=== PATIENT | male | born 1980 | race Two or more races ===

== ENCOUNTER 2025-05-09 11:43 | Inpatient (IN) | payer OTHER ==
[~2025-05-09] VITALS: Ht 188 cm; Wt 113.4 kg
[2025-05-09] MEDS ORDERED: PIPERACILLIN/TAZOBACTAM SODIUM 3.375 GM VIAL IV ONE (12:45)
[2025-05-09 13:18] LABS: BASO % 0.7 % (0.1-1.2); EOS # 0.07 (0.04-0.54); EOS % 0.9 % (0.7-7.0); LYMPH # 1.85 (1.18-3.74); LYMPH % 25.0 % (19.3-53.1); MEAN PLATELET VOLUME 9.60 fl (9.4-12.4); MONO # 0.42 (0.24-0.82); MONO % 5.7 % (4.7-12.5); NEUT # 4.99 (1.56-6.13); NEUT % 67.4 % (34.0-71.1); RED CELL DISTRIBUTION WIDTH 13.5 % (11.6-14.4)
[2025-05-09 13:28] LABS: ERYTHROCYTE SEDIMENTATION RATE 73 mm/hr (0-15)
[2025-05-09 13:50] LABS: INR 1.0
[2025-05-09 14:01] LABS: URINE APPEARANCE Clear; URINE BILIRRUBIN Negative (NEGATIVE); URINE BLOOD Negative; URINE COLOR Yellow; URINE KETONE Negative (NEGATIVE); URINE LEUKOCYTE Negative; URINE NITRATE Negative; URINE UROBILINOGEN 0.2 E.U./dl
[2025-05-09 14:04] LABS: URINE BACTERIA 9.6 uL (0.0-1933)
[2025-05-09 14:14] LABS: URINE CAST 0.58 uL (0.0-1.40); URINE EPITHELIAL CELLS 0.7 uL (0.0-38.8); URINE GLUCOSE >=1000 MG/DL (NEGATIVE); URINE PROTEIN 100 (NEGATIVE); URINE RBC 1.3 uL (0.0-20.8); URINE WBC 1.2 uL (0.0-23.2)
[2025-05-09 15:16] LABS: ALT/SGPT 35.0 U/L (12-78); AST/SGOT 18.0 U/L (15-37); BILIRUBIN TOTAL 0.28 mg/dL (0.3-1.2); BUN CREA RATIO 21.0 (7.0-25.0); CREATININE SERUM 1.45 mg/dL (0.70-1.30); GFR 52.87; GLOBULINA 4.5 G/DL (2.4-3.5)
[2025-05-09 15:22] LABS: GLUCOSE FASTING 306.0 mg/dL (65-100); OSMOLALITY SERUM 290.0 MOSM/KG (275-295)
[2025-05-09] MEDS ORDERED: FAMOTIDINE/PF 20 MG/2 ML VIAL IV SCH (15:45)
[2025-05-09] MEDS ORDERED: INSULIN LISPRO 1,000 UNIT/10 ML UNITS SUBCUTANEO PRN (15:45)
[2025-05-09] MEDS ORDERED: DEXTROSE 50 % IN WATER 0.5 G/ML DISP.SYRIN IV PRN (15:45)
[2025-05-09] MEDS ORDERED: VANCOMYCIN HCL 1,000 MG VIAL IV SCH (15:45)
[2025-05-09] MEDS ORDERED: 0.9 % SODIUM CHLORIDE 1,000 ML IV SCH (15:45)
[2025-05-09] MEDS ORDERED: XIGDUO XR 5 MG1 EAC1 PO (15:55)
[2025-05-09] MEDS ORDERED: MOUNJARO10 MG/0.5 SUBCUTANEO (15:57)
[2025-05-09] MEDS ORDERED: COZAAR100 MG PO (15:57)
[2025-05-09] MEDS ORDERED: CHLORTHALIDONE25 MG PO (15:58)
[2025-05-09] MEDS ORDERED: CRESTOR40 MG PO (15:59)
[2025-05-09] MEDS ORDERED: ACETAMINOPHEN 500 MG GEL..CAP PO PRN (16:00)
[2025-05-09] MEDS ORDERED: ROSUVASTATIN CALCIUM 20 MG TABLET PO SCH (17:00)
[2025-05-09] MEDS ORDERED: LACTOBACILLUS ACIDOPHILUS 1 CAP CAP PO SCH (17:00)
[2025-05-09 17:37] VITALS: BP 148/74
[2025-05-09 18:07] LABS: BUN CREA RATIO 22.0 (7.0-25.0); CREATININE SERUM 1.31 mg/dL (0.70-1.30); GFR 59.44; GLUCOSE FASTING 149.0 mg/dL (65-100); OSMOLALITY SERUM 284.0 MOSM/KG (275-295)
[2025-05-09 18:16] LABS: COVID-19 AG NEGATIVE (NEGATIVE)
[2025-05-09 19:14] VITALS: BP 157/83; O2SAT 100
[2025-05-09] MEDS ORDERED: CEFEPIME HCL 2,000 MG in 0.9 % SODIUM CHLORIDE 100 ML IV SCH (21:00)
[2025-05-10 00:48] VITALS: BP 98/60; O2SAT 98
[2025-05-10 06:50] LABS: BASO % 0.8 % (0.1-1.2); EOS # 0.21 (0.04-0.54); EOS % 2.8 % (0.7-7.0); LYMPH # 2.43 (1.18-3.74); LYMPH % 32.3 % (19.3-53.1); MEAN PLATELET VOLUME 9.60 fl (9.4-12.4); MONO # 0.59 (0.24-0.82); MONO % 7.8 % (4.7-12.5); NEUT # 4.22 (1.56-6.13); NEUT % 56.0 % (34.0-71.1); RED CELL DISTRIBUTION WIDTH 13.9 % (11.6-14.4)
[2025-05-10 08:33] LABS: BUN CREA RATIO 22.0 (7.0-25.0); CREATININE SERUM 1.42 mg/dL (0.70-1.30); GFR 54.16; GLUCOSE FASTING 128.0 mg/dL (65-100); OSMOLALITY SERUM 289.0 MOSM/KG (275-295)
[2025-05-10 08:34] LABS: ALT/SGPT 28.0 U/L (12-78); AST/SGOT 13.0 U/L (15-37); BILIRUBIN TOTAL 0.29 mg/dL (0.3-1.2); CHOL HDL RATIO 2.8 (0-5.0); GLOBULINA 3.9 G/DL (2.4-3.5); HDL 30.0 mg/dl (40-60); LDL 10.0 mg/dl (0-130); VLDL 44.0 (0-39)
[2025-05-10 08:35] LABS: PROSTATIC SPECIFIC ANTIGEN 0.884 NG/ML (0.010-4.00); T4 FREE 1.05 NG/ML (0.76-1.46); TSH 2.06 uIU/mL (0.358-3.74)
[2025-05-10 08:57] VITALS: BP 118/76; O2SAT 98
[2025-05-10] MEDS ORDERED: LOSARTAN POTASSIUM 100 MG TABLET PO SCH (09:00)
[2025-05-10] MEDS ORDERED: CHLORHEXIDINE GLUCONATE 240 ML BOTTLE TOP SCH (09:00)
[2025-05-10] MEDS ORDERED: EMOLLIENTS 6 OZ BOTTLE TOP SCH (09:00)
[2025-05-10 11:23] LABS: URINE APPEARANCE Clear; URINE BILIRRUBIN Negative (NEGATIVE); URINE BLOOD Negative; URINE COLOR Yellow; URINE KETONE Trace (NEGATIVE); URINE LEUKOCYTE Negative; URINE NITRATE Negative; URINE UROBILINOGEN 0.2 E.U./dl
[2025-05-10 11:27] LABS: URINE BACTERIA 5.9 uL (0.0-1933); URINE EPITHELIAL CELLS 4.4 uL (0.0-38.8); URINE RBC 2.3 uL (0.0-20.8); URINE WBC 3.2 uL (0.0-23.2)
[2025-05-10 11:29] LABS: URINE CAST 0.73 uL (0.0-1.40); URINE GLUCOSE >=1000 MG/DL (NEGATIVE); URINE PROTEIN 100 (NEGATIVE)
[2025-05-10] MEDS ORDERED: ENOXAPARIN SODIUM 30 MG/0.3 ML SYRINGE SUBCUTANEO SCH (11:45)
[2025-05-10] MEDS ORDERED: SODIUM POLYSTYRENE SULFONATE 30G/8 TSP PO STA (11:53)
[2025-05-10] MEDS ORDERED: AMINO ACIDS 1 EACH TABLET PO SCH (11:54)
[2025-05-10] MEDS ORDERED: METRONIDAZOLE/SODIUM CHLORIDE 500 MG/100 ML PIGGYBACK IV SCH (13:00)
[2025-05-10] MEDS ORDERED: MUPIROCIN 15 GM OINT..GM TUBE NASAL SCH (17:00)
[2025-05-10 17:44] VITALS: BP 160/85; O2SAT 100
[2025-05-11 01:08] VITALS: BP 105/68; O2SAT 98
[2025-05-11 08:19] VITALS: BP 117/63; O2SAT 99
[2025-05-11] MEDS ORDERED: SODIUM HYPOCHLORITE 1OZ TOP SCH (09:00)
[2025-05-11 18:55] VITALS: BP 124/64
[2025-05-12 00:56] VITALS: BP 118/78; O2SAT 0
[2025-05-12 09:05] VITALS: BP 146/70; O2SAT 100
[2025-05-12 17:47] VITALS: BP 166/81; O2SAT 99
[2025-05-12 17:49] VITALS: BP 166/81; O2SAT 99
[2025-05-13 01:22] VITALS: BP 115/65; O2SAT 97
[2025-05-13 07:11] LABS: ALT/SGPT 27.0 U/L (12-78); AST/SGOT 21.0 U/L (15-37); BILIRUBIN TOTAL 0.41 mg/dL (0.3-1.2); BUN CREA RATIO 22.0 (7.0-25.0); CREATININE SERUM 1.34 mg/dL (0.70-1.30); GFR 57.91; GLOBULINA 3.4 G/DL (2.4-3.5); GLUCOSE FASTING 130.0 mg/dL (65-100); OSMOLALITY SERUM 291.0 MOSM/KG (275-295)
[2025-05-13] MEDS ORDERED: INSULIN NPH HUM/REG INSULIN HM 1,000 UNIT/10 ML UNITS SUBCUTANEO SCH (08:00)
[2025-05-13 09:36] VITALS: BP 134/76; O2SAT 99
[2025-05-13 17:56] VITALS: BP 112/67; O2SAT 100
[2025-05-14 02:13] VITALS: BP 121/73
[2025-05-14 09:27] VITALS: BP 123/69
[2025-05-14 18:16] VITALS: BP 160/68; O2SAT 98
[2025-05-15 02:12] VITALS: BP 155/75; O2SAT 100
[2025-05-15 08:50] VITALS: BP 140/70
[2025-05-15 17:00] VITALS: BP 147/82; O2SAT 99
[2025-05-16 02:23] VITALS: BP 125/75; O2SAT 100
[2025-05-16 10:00] VITALS: BP 159/80; O2SAT 100
[2025-05-16 16:28] VITALS: BP 154/77
[2025-05-17 02:24] VITALS: BP 135/75; O2SAT 99
[2025-05-17] MEDS ORDERED: (FF) Daptomycin 50 MG/ML IV SCH (09:00)
[2025-05-17 09:12] VITALS: BP 134/85; O2SAT 100
[2025-05-17] MEDS ORDERED: ROSUVASTATIN CA20 MG PO (17:25)
[2025-05-17] MEDS ORDERED: METRONIDAZOLE500 MG PO (17:25)
[2025-05-17] MEDS ORDERED: LOSARTAN POTAS100 MG PO (17:25)
[2025-05-17] MEDS ORDERED: INTESTINEX680 M1 PO (17:25)
[2025-05-17] MEDS ORDERED: FAMOTIDINE20 MG PO (17:25)
[2025-05-17 18:04] VITALS: BP 160/66; O2SAT 98
[2025-05-18] MEDS ORDERED: INSULIN NPH HUM/REG INSULIN HM 1,000 UNIT/10 ML UNITS SUBCUTANEO SCH (08:00)
[2025-05-18] MEDS ORDERED: INSULIN REGULAR, HUMAN 1,000 UNIT/10 ML UNITS SUBCUTANEO SCH (17:00)
== END 2025-05-18 06:29 | disposition home or self-care (01) | DRG 617 ==
LOC: ER 11:43 → SEC-K 15:57 → MEDJ 15:57 → MEDI 15:57 → MEDJ 05-10 15:34
PROVIDERS: General Practice; Specialist; ADMIT Internal Medicine; ATTEND Internal Medicine
PROC: CP2C1ZZ Tomographic (Tomo) Nuclear Medicine Imaging of Right Lower Extremity using Technetium 99m (Tc-99m) (ICD-10-PCS; 2025-05-10)
PROC: B44HZZZ Ultrasonography of Bilateral Lower Extremity Arteries (ICD-10-PCS; 2025-05-10)
PROC: 8E0ZXY6 Isolation (ICD-10-PCS; 2025-05-10)
PROC: 0Y6P0Z1 Detachment at Right 1st Toe, High, Open Approach (ICD-10-PCS; principal; 2025-05-12 16:15)
PROC: 02HV33Z Insertion of Infusion Device into Superior Vena Cava, Percutaneous Approach (ICD-10-PCS; 2025-05-17)
DX: E11.621 Type 2 diabetes mellitus with foot ulcer (principal); M86.171 Other acute osteomyelitis, right ankle and foot; L97.519 Non-pressure chronic ulcer of other part of right foot with unspecified severity; L08.9 Local infection of the skin and subcutaneous tissue, unspecified; D64.9 Anemia, unspecified; Z79.4 Long term (current) use of insulin; I10 Essential (primary) hypertension; E78.5 Hyperlipidemia, unspecified; N17.9 Acute kidney failure, unspecified; B95.62 Methicillin resistant Staphylococcus aureus infection as the cause of diseases classified elsewhere; B95.2 Enterococcus as the cause of diseases classified elsewhere
CPT/HCPCS: 73221

== ENCOUNTER 2025-05-28 13:41 | Inpatient (IN) | payer OTHER ==
[~2025-05-28] VITALS: Ht 170.2 cm; Wt 104.3 kg
[~2025-05-28 13:41] MED LIST: CHLORTHALIDONE25 MG PO; COZAAR100 MG PO; CRESTOR40 MG PO; FAMOTIDINE20 MG PO; INTESTINEX680 M1 PO; LOSARTAN POTAS100 MG PO; METRONIDAZOLE500 MG PO; MOUNJARO10 MG/0.5 SUBCUTANEO; ROSUVASTATIN CA20 MG PO; XIGDUO XR 5 MG1 EAC1 PO
[2025-05-28 17:32] LABS: BASO % 0.6 % (0.1-1.2); EOS # 0.07 (0.04-0.54); EOS % 1.0 % (0.7-7.0); LYMPH # 1.10 (1.18-3.74); LYMPH % 15.9 % (19.3-53.1); MEAN PLATELET VOLUME 9.80 fl (9.4-12.4); MONO # 0.59 (0.24-0.82); MONO % 8.5 % (4.7-12.5); NEUT # 5.10 (1.56-6.13); NEUT % 73.7 % (34.0-71.1); RED CELL DISTRIBUTION WIDTH 14.2 % (11.6-14.4)
[2025-05-28 18:03] LABS: INR 1.1
[2025-05-28 18:15] LABS: ALT/SGPT 43.0 U/L (12-78); AST/SGOT 41.0 U/L (15-37); BILIRUBIN TOTAL 0.36 mg/dL (0.3-1.2); BUN CREA RATIO 22.0 (7.0-25.0); CREATININE SERUM 1.84 mg/dL (0.70-1.30); GFR 40.16; GLOBULINA 4.8 G/DL (2.4-3.5); GLUCOSE FASTING 127.0 mg/dL (65-100); OSMOLALITY SERUM 283.0 MOSM/KG (275-295)
[2025-05-28 18:29] LABS: ERYTHROCYTE SEDIMENTATION RATE > 130 mm/hr (0-15)
[2025-05-28 18:40] LABS: URINE BILIRRUBIN NEGATIVE (NEGATIVE); URINE BLOOD SMALL; URINE KETONE NEGATIVE (NEGATIVE); URINE LEUKOCYTE NEGATIVE; URINE NITRATE NEGATIVE; URINE UROBILINOGEN 0.2 E.U./dl
[2025-05-28 18:42] LABS: COVID-19 AG NEGATIVE (NEGATIVE)
[2025-05-28 18:59] LABS: URINE APPEARANCE CLEAR; URINE COLOR YELLOW; URINE GLUCOSE 500 MG/DL (NEGATIVE); URINE PROTEIN 100 (NEGATIVE)
[2025-05-28 19:01] LABS: URINE BACTERIA FEW; URINE CRYSTALS MODERATE /HPF; URINE RBC 0-3 /HPF; URINE WBC 0-2 /hpf
[2025-05-28 19:02] LABS: URINE MUCUS MODERATE
[2025-05-28] MEDS ORDERED: CEFEPIME HCL 2,000 MG VIAL IV SCH (20:28)
[2025-05-28] MEDS ORDERED: 0.9 % SODIUM CHLORIDE 1,000 ML IV ONE (20:30)
[2025-05-28] MEDS ORDERED: ACETAMINOPHEN 500 MG GEL..CAP PO PRN (20:30)
[2025-05-28] MEDS ORDERED: ACETAMINOPHEN 500 MG GEL..CAP PO ONE ×2 (20:30→21:32)
[2025-05-28] MEDS ORDERED: DAPTOMYCIN IV SCH (20:30)
[2025-05-28] MEDS ORDERED: FAMOTIDINE/PF 20 MG in 0.9 % SODIUM CHLORIDE 8 ML IV PUSH SCH (20:30)
[2025-05-28] MEDS ORDERED: 0.9 % SODIUM CHLORIDE 1,000 ML IV SCH (20:45)
[2025-05-28] MEDS ORDERED: INSULIN LISPRO 1,000 UNIT/10 ML UNITS SUBCUTANEO PRN (20:45)
[2025-05-28] MEDS ORDERED: DEXTROSE 50 % IN WATER 0.5 G/ML DISP.SYRIN IV PRN (20:45)
[2025-05-28] MEDS ORDERED: FAMOTIDINE/PF 20 MG/2 ML VIAL ONE (21:33)
[2025-05-28] MEDS ORDERED: CEFEPIME HCL 2,000 MG VIAL ONE (21:33)
[2025-05-28 21:39] LABS: ABG PH 7.396 (7.35-7.45); ABG PO2 101.4 mmHg (80-100); BICARBONATE 14.3 mmol/l (23-25)
[2025-05-28 21:53] LABS: o2 21 %
[2025-05-29 02:43] VITALS: BP 134/74; O2SAT 99
[2025-05-29] MEDS ORDERED: ENOXAPARIN SODIUM 40 MG/0.4 ML SYRINGE SUBCUTANEO SCH (09:00)
[2025-05-29] MEDS ORDERED: LOSARTAN POTASSIUM 100 MG TABLET PO SCH (09:00)
[2025-05-29] MEDS ORDERED: CITRIC ACID/SODIUM CITRATE 30 ML BLIST.PACK PO SCH (09:00)
[2025-05-29] MEDS ORDERED: ROSUVASTATIN CALCIUM 20 MG TABLET PO SCH (09:00)
[2025-05-29 09:02] VITALS: BP 152/90
[2025-05-29] MEDS ORDERED: MEROPENEM 500 MG/VIAL VIAL IV STA (11:30)
[2025-05-29] MEDS ORDERED: LACTOBACILLUS ACIDOPHILUS 1 CAP CAP PO SCH (11:31)
[2025-05-29] MEDS ORDERED: (FF) Daptomycin 50 MG/ML IV SCH (12:00)
[2025-05-29] MEDS ORDERED: MUPIROCIN 15 GM OINT..GM TUBE NASAL SCH (17:00)
[2025-05-29] MEDS ORDERED: MEROPENEM 500 MG/VIAL VIAL IV SCH (17:00)
[2025-05-29] MEDS ORDERED: CHLORHEXIDINE GLUCONATE 120 ML BOTTLE TOP SCH (17:00)
[2025-05-29 18:20] VITALS: BP 112/67; O2SAT 98
[2025-05-30 02:59] VITALS: BP 124/74; O2SAT 99
[2025-05-30 06:53] LABS: ALT/SGPT 37.0 U/L (12-78); AST/SGOT 49.0 U/L (15-37); BILIRUBIN TOTAL 0.21 mg/dL (0.3-1.2); BUN CREA RATIO 19.0 (7.0-25.0); CREATININE SERUM 1.44 mg/dL (0.70-1.30); GFR 53.29; GLOBULINA 2.9 G/DL (2.4-3.5); GLUCOSE FASTING 151.0 mg/dL (65-100); OSMOLALITY SERUM 297.0 MOSM/KG (275-295)
[2025-05-30 07:02] LABS: BASO % 1.0 % (0.1-1.2); EOS # 0.12 (0.04-0.54); EOS % 3.9 % (0.7-7.0); LYMPH # 1.43 (1.18-3.74); LYMPH % 46.4 % (19.3-53.1); MEAN PLATELET VOLUME 10.30 fl (9.4-12.4); MONO # 0.68 (0.24-0.82); NEUT # 0.81 (1.56-6.13); NEUT % 26.3 % (34.0-71.1); RED CELL DISTRIBUTION WIDTH 14.5 % (11.6-14.4)
[2025-05-30 08:31] LABS: BAND MAN 2.0 %; EOSINOPHIL MAN 5.0 %; LYMPHOCYTE MAN 51.0 %; MONO % 22.1 % (4.7-12.5); MONOCYTE MAN 15.0 %; NEUTROPHILS MAN 27.0 %
[2025-05-30 08:36] VITALS: BP 151/96
[2025-05-30] MEDS ORDERED: AMINO ACIDS 1 EACH TABLET PO SCH (09:00)
[2025-05-30] MEDS ORDERED: SOD FERRIC GLUC COMPLX/SUCROSE 62.5 MG in 0.9 % SODIUM CHLORIDE 50 ML IV SCH (15:39)
[2025-05-30 17:44] VITALS: BP 141/83; O2SAT 100
[2025-05-31 01:55] VITALS: BP 125/78; O2SAT 99
[2025-05-31 09:00] VITALS: BP 158/91; O2SAT 100
[2025-05-31] MEDS ORDERED: EPOETIN ALFA-EPBX 10,000 UNIT/ML VIAL (Retacrit) SUBCUTANEO NR (11:00)
[2025-05-31 19:09] VITALS: BP 143/84; O2SAT 100
[2025-06-01 01:13] VITALS: BP 140/77; O2SAT 99
[2025-06-01 06:54] LABS: BASO % 0.6 % (0.1-1.2); EOS # 0.13 (0.04-0.54); EOS % 2.8 % (0.7-7.0); LYMPH # 2.05 (1.18-3.74); LYMPH % 43.8 % (19.3-53.1); MEAN PLATELET VOLUME 9.80 fl (9.4-12.4); MONO # 0.42 (0.24-0.82); MONO % 9.0 % (4.7-12.5); NEUT # 2.04 (1.56-6.13); NEUT % 43.6 % (34.0-71.1); RED CELL DISTRIBUTION WIDTH 14.1 % (11.6-14.4)
[2025-06-01 07:11] LABS: ERYTHROCYTE SEDIMENTATION RATE > 130 mm/hr (0-15)
[2025-06-01 08:07] VITALS: BP 137/85
[2025-06-01 08:07] LABS: ALT/SGPT 64.0 U/L (12-78); AST/SGOT 64.0 U/L (15-37); BILIRUBIN TOTAL 0.29 mg/dL (0.3-1.2); BUN CREA RATIO 23.0 (7.0-25.0); CREATININE SERUM 1.2 mg/dL (0.70-1.30); GFR 65.77; GLOBULINA 3.3 G/DL (2.4-3.5); GLUCOSE FASTING 157.0 mg/dL (65-100); OSMOLALITY SERUM 288.0 MOSM/KG (275-295)
[2025-06-01] MEDS ORDERED: SOD FERRIC GLUC COMPLX/SUCROSE 62.5 MG/5 ML AMPUL IV ONE (10:34)
[2025-06-01 17:19] VITALS: BP 144/85
[2025-06-02 02:15] VITALS: BP 145/86; O2SAT 100
[2025-06-02] MEDS ORDERED: INSULIN NPH HUM/REG INSULIN HM 1,000 UNIT/10 ML UNITS SUBCUTANEO STA (08:28)
[2025-06-02] MEDS ORDERED: INSULIN LISPRO 1,000 UNIT/10 ML UNITS SUBCUTANEO PRN (08:30)
[2025-06-02 08:41] VITALS: BP 160/91
[2025-06-02] MEDS ORDERED: INSULIN NPH HUM/REG INSULIN HM 1,000 UNIT/10 ML UNITS SUBCUTANEO SCH (17:00)
[2025-06-02 17:47] VITALS: BP 160/88; O2SAT 100
[2025-06-03 04:41] VITALS: BP 111/71; O2SAT 100
[2025-06-03] MEDS ORDERED: INSULIN NPH HUM/REG INSULIN HM 1,000 UNIT/10 ML UNITS SUBCUTANEO SCH (08:00)
[2025-06-03 10:04] VITALS: BP 150/84; O2SAT 100
[2025-06-03 18:29] VITALS: BP 178/84
[2025-06-04 02:17] VITALS: BP 130/80; O2SAT 99
[2025-06-04 09:44] VITALS: BP 148/90
[2025-06-04] MEDS ORDERED: hydrALAZINE HCL 20 MG VIAL IV PRN (17:00)
[2025-06-04] MEDS ORDERED: NAPROXEN 500 MG TABLET PO SCH (17:00)
[2025-06-04 18:22] VITALS: BP 160/83; O2SAT 100
[2025-06-05 02:06] VITALS: BP 149/80; O2SAT 99
[2025-06-05 08:07] VITALS: BP 162/78
[2025-06-05] MEDS ORDERED: (FF) Daptomycin 50 MG/ML IV SCH (17:00)
[2025-06-05 18:50] VITALS: BP 156/85; O2SAT 100
[2025-06-06 02:09] VITALS: BP 156/88; O2SAT 98
[2025-06-06 06:15] LABS: BASO % 0.9 % (0.1-1.2); EOS # 0.31 (0.04-0.54); EOS % 4.2 % (0.7-7.0); LYMPH # 2.64 (1.18-3.74); LYMPH % 35.5 % (19.3-53.1); MEAN PLATELET VOLUME 9.90 fl (9.4-12.4); MONO # 0.81 (0.24-0.82); MONO % 10.9 % (4.7-12.5); NEUT # 3.57 (1.56-6.13); NEUT % 48.0 % (34.0-71.1); RED CELL DISTRIBUTION WIDTH 14.1 % (11.6-14.4)
[2025-06-06 06:42] LABS: ERYTHROCYTE SEDIMENTATION RATE 84 mm/hr (0-15)
[2025-06-06 06:53] LABS: ALT/SGPT 175.0 U/L (12-78); AST/SGOT 66.0 U/L (15-37); BILIRUBIN TOTAL 0.54 mg/dL (0.3-1.2); BUN CREA RATIO 23.0 (7.0-25.0); CREATININE SERUM 1.06 mg/dL (0.70-1.30); GFR 75.9; GLOBULINA 3.2 G/DL (2.4-3.5); GLUCOSE FASTING 107.0 mg/dL (65-100); OSMOLALITY SERUM 284.0 MOSM/KG (275-295)
[2025-06-06 08:00] VITALS: BP 134/85
[2025-06-06] MEDS ORDERED: MEROPENEM 500 MG/VIAL VIAL IV SCH (12:00)
[2025-06-06 18:57] VITALS: BP 142/73
[2025-06-07 02:20] VITALS: BP 132/80; O2SAT 97
[2025-06-07 08:30] VITALS: BP 143/83; O2SAT 99
[2025-06-07] MEDS ORDERED: LOSARTAN POTAS100 MG PO (15:28)
[2025-06-07] MEDS ORDERED: ROSUVASTATIN CA20 MG PO (15:28)
[2025-06-07] MEDS ORDERED: FAMOTIDINE20 MG PO (15:29)
[2025-06-07] MEDS ORDERED: INTESTINEX680 M1 PO (15:29)
[2025-06-07 16:16] VITALS: BP 150/85; O2SAT 100
== END 2025-06-07 17:25 | disposition home or self-care (01) | DRG 264 ==
LOC: ER 13:41 → MEDJ 20:53
PROVIDERS: General Practice; Internal Medicine; ADMIT Internal Medicine; ATTEND Internal Medicine
PROC: BT43ZZZ Ultrasonography of Bilateral Kidneys (ICD-10-PCS; 2025-05-28)
PROC: B246ZZZ Ultrasonography of Right and Left Heart (ICD-10-PCS; 2025-05-29)
PROC: 02PY33Z Removal of Infusion Device from Great Vessel, Percutaneous Approach (ICD-10-PCS; 2025-05-29)
PROC: 0JBQ0ZZ Excision of Right Foot Subcutaneous Tissue and Fascia, Open Approach (ICD-10-PCS; principal; 2025-05-30)
DX: T80.211A Bloodstream infection due to central venous catheter, initial encounter (principal); A41.89 Other specified sepsis; M86.671 Other chronic osteomyelitis, right ankle and foot; N17.9 Acute kidney failure, unspecified; T81.72XA Complication of vein following a procedure, not elsewhere classified, initial encounter; I80.8 Phlebitis and thrombophlebitis of other sites; E11.621 Type 2 diabetes mellitus with foot ulcer; E11.65 Type 2 diabetes mellitus with hyperglycemia; L97.519 Non-pressure chronic ulcer of other part of right foot with unspecified severity; E86.0 Dehydration; R19.7 Diarrhea, unspecified; D64.9 Anemia, unspecified; I12.9 Hypertensive chronic kidney disease with stage 1 through stage 4 chronic kidney disease, or unspecified chronic kidney disease; N18.9 Chronic kidney disease, unspecified; E78.5 Hyperlipidemia, unspecified; Z79.84 Long term (current) use of oral hypoglycemic drugs; Z89.411 Acquired absence of right great toe; Y65.8 Other specified misadventures during surgical and medical care